=== PATIENT | female | born 1935 | race Caucasian/White ===

== ENCOUNTER 2021-05-24 17:02 | Emergency (ER) | payer OTHER ==
[~2021-05-24] VITALS: Ht 167.6 cm; Wt 68.0 kg
[2021-05-24 18:39] LABS: HEMATOCRIT 32.9 % (37.0-47.0); HEMOGLOBIN 10.7 gm/dL (12.0-15.0); MCH 31.5 pg (26.0-34.0); MCHC 32.4 g/dL (28.0-37.0); RBC 3.39 mil/uL (4.20-5.00); RDW 15.5 % (10.5-14.5); WBC 14.8 thou/uL (4.0-11.0)
[2021-05-24 19:02] LABS: CREATININE 1.6 mg/dL (0.6-1.0); POTASSIUM 5.4 mmol/L (3.5-5.1)
[2021-05-24 19:18] LABS: URINE BILIRUBIN NEGATIVE (Negative); URINE BLOOD TRACE (Negative); URINE CLARITY CLEAR; URINE COLOR YELLOW; URINE GLUCOSE-RANDOM* NEGATIVE (Negative); URINE KETONES NEGATIVE (Negative); URINE PROTEIN (DIPSTICK) TRACE (Negative); URINE UROBILINOGEN 0.2 E.U./dl (0.2-1.0)
[2021-05-24 19:19] LABS: URINE LEUKOCYTES-REFLEX 2+ (Negative); URINE NITRITE-REFLEX POSITIVE (Negative)
[2021-05-24 19:29] LABS: SQUAMOUS 4-10 Moderate /LPF (0-3); URINE RBC 3-10 Few /HPF (NONE SEEN); URINE WBC-REFLEX >25 Many /HPF (0-5)
[2021-05-24 19:30] LABS: CASTS None Seen /LPF (None Seen); CRYSTALS None Seen /LPF (None Seen)
[2021-05-24] MEDS ORDERED: ACETAMINOPHEN500 M1 PO (19:35)
[2021-05-24] MEDS ORDERED: ANTI-DIARRHEAL2 MG PO (19:38)
[2021-05-24] MEDS ORDERED: DEXILANT60 MG PO (19:39)
[2021-05-24] MEDS ORDERED: DICYCLOMINE HCL20 MG PO (19:39)
[2021-05-24] MEDS ORDERED: HALOPERIDOL5 MG/1 ML IM (19:40)
[2021-05-24] MEDS ORDERED: HYOSCYAMINE0.125 MG PO (19:41)
[2021-05-24] MEDS ORDERED: LISINOPRIL20 MG PO (19:42)
[2021-05-24] MEDS ORDERED: LORAZEPAM I2 MG/1 ML PO (19:51)
[2021-05-24] MEDS ORDERED: MORPHINE S100 MG/51 PO (19:52)
[2021-05-24] MEDS ORDERED: PREDNISONE 20 M20 MG PO (19:53)
[2021-05-24] MEDS ORDERED: ONDANSETRON HCL4 M3 PO (19:53)
[2021-05-24] MEDS ORDERED: QUETIAPINE FUMA25 MG PO (19:55)
[2021-05-24] MEDS ORDERED: PREPARATION H C26 GM TOP (19:55)
[2021-05-24] MEDS ORDERED: SERTRALINE HCL100 MG PO (19:55)
[2021-05-24] MEDS ORDERED: DESYREL150 MG PO (19:56)
[2021-05-24] MEDS ORDERED: ULTRAM 50MG TAB50 MG PO (19:56)
[2021-05-25 00:17] LABS: CALCIUM 8.8 mg/dL (8.5-10.1); CREATININE 1.5 mg/dL (0.6-1.0)
[2021-05-25 00:22] LABS: POTASSIUM 5.2 mmol/L (3.5-5.1)
[2021-05-25 00:37] VITALS: BP 106/41
--- NOTE | 2021-05-27 07:55 | EKG ---
[facility] [place] [address] ELECTROCARDIOGRAM REPORT Name: SANA ALY Room #: [facility]#: [id number] Admission: 05/24/21 Attend Phys: Discharge: 05/25/21 Date of : [birth year] Report #: [id number] [facility] ED Test Date: 2021-05-24 Test Time: 18:40:14 Pat Name: SANA ALY Department: Room: Gender: F Welder Operator: : 1935 Requested By: Leslie Caraballo Order Number: [id number] MD: James Pfeiffer Measurements Intervals [place] Rate: 98 P: 67 [place]: 175 QRS: -24 QRSD: 137 T: -28 QT: 361 QTc: 461 Interpretive Statements Sinus rhythm Right bundle branch block Inferior infarct, age indeterminate Baseline wander in multiple lead(s) No previous ECG available for comparison Electronically Signed On 05-27-2021 7:55:20 INCIDENT RESPONSE ANALYST by James Pfeiffer [email or web address] <ELECTRONICALLY SIGNED> By: James Pfeiffer MD, [facility] 05/27/21 0755 1840 1840 James Pfeiffer MD, FACC /EPI
== END 2021-05-25 00:38 ==
LOC: ER 17:02
PROVIDERS: Emergency Medicine; Nurse Practitioner Family
DX: N39.0 Urinary tract infection, site not specified (principal); F91.9 Conduct disorder, unspecified; F41.9 Anxiety disorder, unspecified; M19.90 Unspecified osteoarthritis, unspecified site; F02.80 Dementia in other diseases classified elsewhere, unspecified severity, without behavioral disturbance, psychotic disturbance, mood disturbance, and anxiety; K21.9 Gastro-esophageal reflux disease without esophagitis; E78.5 Hyperlipidemia, unspecified; Z79.899 Other long term (current) drug therapy; Z79.891 Long term (current) use of opiate analgesic; Z88.0 Allergy status to penicillin; Z88.2 Allergy status to sulfonamides

== ENCOUNTER 2021-05-24 18:42 | Inpatient (IN) | payer OTHER ==
[~2021-05-24] VITALS: Ht 165.1 cm; Wt 62.8 kg
--- NOTE | ~2021-05-24 | HC ---
[facility] [place] [address] CONSULTATION Name: SANA ALY Room #: 525-[facility] IN ..#: [id number] Admission: 05/25/21 Attend Phys: Deon Mays DO Discharge: Date of : [birth year] Report #: [id number] THIS REPORT FOR: cc: Miguel Galeano MD, Christopher B. MD Jetmore, Allen B. MD ~ DATE OF SERVICE: 06/02/2021 REASON FOR CONSULTATION: Abrasions and skin tears of right leg and right arm. No other extremities from behavioral disturbance with dementia. I was asked to see the patient by Dr. Carrillo. HISTORY OF PRESENT ILLNESS: Mannie Aly is an unfortunate 86-year-old woman with advanced dementia and behavioral disturbances with some aggressive behaviors. Nurse gave me the history that she was previously on hospice care, but no longer. The patient just over the past couple of days has been noticed to have wounds of her upper and lower extremities, particularly the right leg. This is believed by the nurse to be due to self-inflicted behavior such as banging her leg on chairs. The patient is not able to give a history. She states she just wants to be "left alone." ALLERGIES: PENICILLIN AND SULFA. MEDICATIONS: Trazodone, acetaminophen, loperamide for diarrhea, Dexilant, dicyclomine, Haldol, hyoscyamine, lisinopril, morphine sulfate, prednisone, sertraline, tramadol. REVIEW OF SYSTEMS: Not obtainable. PHYSICAL EXAMINATION: GENERAL: Shows an elderly woman with dementia and altered behavior. She says she just wants to be left alone. She is easily agitated. HEENT: Normal. The patient has ecchymoses of her upper and lower extremities. There is a skin tear of her right upper arm covered with gauze. She do not let me inspected. The patient has a large skin tear of her right lower leg medial posterior calf measuring approximately 15 x 4 cm. This is a superficial skin tear with exposed dermis. The patient has other abrasions and bruises of both legs. IMPRESSION: 1. Dementia with behavioral disturbances and aggressive behaviors. 2. Large skin tear of right leg. 3. Skin tear of right arm. 4. Ecchymoses and contusions of both legs. 5. Diarrhea. [facility] [address] [place] [address] CONSULTATION Name: SANA ALY Room #: 525A-[facility] IN ..#: [id number] Admission: 05/25/21 Attend Phys: Deon Mays DO Discharge: Date of : [birth year] Report #: [id number] PLAN: Wound care will consist of topical application of Bactroban to the open skin tear, areas of the arms and legs daily, cover with Xeroform, ABD pad, Kerlix and protective Burak wrap. Wound care team will follow. By: [id number] Mauricio Torres MD /vince
[2021-05-24] MEDS ORDERED: ACETAMINOPHEN500 M1 PO (19:35)
[2021-05-24] MEDS ORDERED: ANTI-DIARRHEAL2 MG PO (19:38)
[2021-05-24] MEDS ORDERED: DEXILANT60 MG PO (19:39)
[2021-05-24] MEDS ORDERED: DICYCLOMINE HCL20 MG PO (19:39)
[2021-05-24] MEDS ORDERED: HALOPERIDOL5 MG/1 ML IM (19:40)
[2021-05-24] MEDS ORDERED: HYOSCYAMINE0.125 MG PO (19:41)
[2021-05-24] MEDS ORDERED: LISINOPRIL20 MG PO (19:42)
[2021-05-24] MEDS ORDERED: LORAZEPAM I2 MG/1 ML PO (19:51)
[2021-05-24] MEDS ORDERED: MORPHINE S100 MG/51 PO (19:52)
[2021-05-24] MEDS ORDERED: ONDANSETRON HCL4 M3 PO (19:53)
[2021-05-24] MEDS ORDERED: PREDNISONE 20 M20 MG PO (19:53)
[2021-05-24] MEDS ORDERED: QUETIAPINE FUMA25 MG PO (19:55)
[2021-05-24] MEDS ORDERED: SERTRALINE HCL100 MG PO (19:55)
[2021-05-24] MEDS ORDERED: PREPARATION H C26 GM TOP (19:55)
[2021-05-24] MEDS ORDERED: ULTRAM 50MG TAB50 MG PO (19:56)
[2021-05-24] MEDS ORDERED: DESYREL150 MG PO (19:56)
[2021-05-25 01:36] VITALS: BP 139/59
--- NOTE | 2021-05-25 03:46 | NUR ---
Pt admitted to unit at 0055 this shift. Pt brought to unit on [facility] from ED after medical clearance. Pt was listed as ambulatory with walker but ED reports that pt has refused to ambulate in the ED et pt refused to transfer self from [place] to bed. After transferring, pt allowed a cursory inspection of skin where it was noted that she has moderate amount of skin discoloration to bilateral lower extremities. Pt was soiled et small amount of redness noted to perineal area during changing. Area was cleansed et barrier cream applied. VSWNL. Health assessment with no abnormalities noted at present time. Voicemail message was left with DPOA informing of pt's presence on unit et requesting that he return the call to give consent to treat. Phone calls made to physician publications inspector for orders et hospitalist LABORATORY HELPER publications inspector to inform of pt's presence on unit. Med orders entered et med list faxed to pharmacist per his request. Pt calm et cooperative during process. Alert ey oriented to person only. Unable to assess SI/HI due to cognitive deficit but does not demonstrate any symptoms of acute emotional distress at present time. Currently resting in bed with eyes closed. Will continue to monitor per unit protocol.
[2021-05-25 08:10] LABS: CHOLESTEROL 309 mg/dL (<200); HDL CHOLESTEROL 61 mg/dL (>40); LDL CHOLESTEROL 206 mg/dL (<100); TC:HDL 5.1 Ratio (Not establshd); TRIGLYCERIDE 214 mg/dL (<150); VLDL 43 mg/dL (<40)
[2021-05-25 09:09] VITALS: BP 138/79
[2021-05-25 09:21] VITALS: BP 138/79
--- NOTE | 2021-05-25 13:35 | NUR ---
RESUMMED CARE FROM OVERNIGHT SHIFT THIS AM, PATIENT SITTING IN DAY ROOM QUIET. PATIENT ALERT TO SELF ONLY PATIENT PATIENT HAS SOME CONFUSION AND DOES NOT KNOW YEAR MONTH OR DAY. PATIENT ATE BREAKFAST BUT ASKED FOR HER MEDICATION TO BE CRUSHED IN YOGART. PATIENT DENIES SI/HI/AH/VH AT PRESENT PATIENTS AFFECT FLAT. PATIENTS ABDOMEN SOFT BOWEL SOUNDS PRESENT PATIENTS LUNGS CLEAR. PATIENT COMPLAINS OF HIP PAIN WHICH I GAVE TYLENOL 650 MG. PATIENT CALM COOPERATIVE WILL CONTINUE TO MONITOR PATIENT FOR SAFETY AND BEHAVIORS.
--- NOTE | 2021-05-25 17:14 | NUR ---
LA and Dr. Morris attempted to speak with the Pt outside of her room. Pt seemed aggitated and wanted to eat lunch. Pt did state she was scared of falling and has pain in her hip. Pt was rolled into the dining godoy to eat lunch. We were able to get into contact with Jorge A Oliver, son/DPOA. Jorge A was able to give some history on the Pt. Pt has lived [facility] Prior to that she lived on her own. Pt has recently developed dementia in the last year. Jorge A reported that [facility] has not been able to provide the level of care that they had in the past. Due to this Pt's behaviors seem to have increased in an effort to get "attention". Pt grew up in [place], [place] and has 1 younger sister that is still living. 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 Pt was 2x and had 3 children. Pt has no hx of drugs or ETOH abuse. Pt had no prior psychiatric hospitalizations or otpt mental health services. Jorge A had no other questions or comments. SW team will continue to follow.
[2021-05-25 20:03] VITALS: BP 99/52
--- NOTE | 2021-05-26 05:13 | NUR ---
Assumed care of pt at 1900. Pt calm et cooperative this shift. Took medications whole in yogurt this shift without difficulty. Ambulates with assistance of micki-chair. VSWNL. Health assessment with no abnormalities noted this shift. Denies SI/HI at present time. Socialized with peers in dayroom watching TV until HS. Currently resting in bed with eyes closed. Will continue to monitor per unit protocol.
[2021-05-26 05:39] LABS: GLYCOHEMOGLOBIN (HGB A1C) 6.7 % (4.8-5.6)
[2021-05-26 07:36] VITALS: BP 128/75
[2021-05-26 08:37] LABS: URINE BILIRUBIN NEGATIVE (Negative); URINE BLOOD 1+ (Negative); URINE CLARITY CLOUDY; URINE COLOR YELLOW; URINE GLUCOSE-RANDOM* NEGATIVE (Negative); URINE KETONES NEGATIVE (Negative); URINE NITRITE-REFLEX NEGATIVE (Negative); URINE PROTEIN (DIPSTICK) NEGATIVE (Negative); URINE SPECIFIC GRAVITY 1.025 (1.005-1.035); URINE UROBILINOGEN 0.2 E.U./dl (0.2-1.0)
[2021-05-26 08:46] LABS: URINE LEUKOCYTES-REFLEX 2+ (Negative)
[2021-05-26 08:59] LABS: BACTERIA-REFLEX 1-9 Few /HPF (None Seen); CASTS None Seen /LPF (None Seen); CRYSTALS None Seen /LPF (None Seen); SQUAMOUS 0-3 Few /LPF (0-3); URINE RBC 1-2 Rare /HPF (NONE SEEN); URINE WBC-REFLEX >25 Many /HPF (0-5)
[2021-05-26 09:45] VITALS: BP 128/75
--- NOTE | 2021-05-26 16:10 | NUR ---
Assumed pt care from overnight shift this am. Pt presented confused and agitated at this time, and was yelling and screaming on occasion from confusion. Pt was oriented to self only, and would not verbaliaze concerns to staff, stating that staff were "liars- all of you have lied to me, and I don't trust you- I want to go back to bed- don't touch me- you all are lying to my face." Pt was once again reoriented to environment and pt education was done. Pt denied depression and anxiety at this time, and denied any si/hi, and asked staff to leave her alone to sleep. Pt denied any hallucinations at this time as well. Lung sounds clear and diminished. Bowel sounds active. Last BM 05/24/21. Pt stated that she wanted to stay in bed, but per provider orders, pt was on room lockout, so pt was taken to activity area. Pt resistant to this, but pt education was done. No further concerns.
[2021-05-26 20:20] VITALS: BP 128/75
--- NOTE | 2021-05-27 02:06 | NUR ---
PATIENT HAS BEEN IN HER ROOM IN BED ALL NIGHT. SHE SCREAMED OUT A COUPLE OF TIMES IN THE EVENING AND PATIENT WAS HELPED TO THE BATHROOM. HAD TO AWAKEN PATIENT TO TAKE HS MEDS. SHE TOOK THEM WHOLE WITH PUDDING AND WATER. PATIENT DENIES PAIN, SI/HI/AVH. SHE WANTED THIS NURSE TO HURRY GIVING HER MEDS AND ASSESSING HER SO SHE COULD GO BACK TO SLEEP. PATIENT IS SLEEPING AT THIS TIME. SHE IS A/O X 2. BED IN LOW POSITION AND BED ALARM IS ON. ROUTINE ROUNDS TO ASSESS SAFETY AND STATUS OF PATIENT.
[2021-05-27 09:51] VITALS: BP 116/56
[2021-05-27 10:13] VITALS: BP 116/56
--- NOTE | 2021-05-27 10:42 | NUR ---
Admit to [facility] with dementia and behavioral disturbances. Labs: A1C 6.7-borderline high, prediabetes vs steroid (on prednisone). Also HLD with chol 309, triglycerides 214-on lipitor. ? high K of 5.2 and elevated bun/cr lab upon admit. On regular diet, eating 50-100% most meals. Unknown wt hx, BMI is 24. Presents low nutrition risk and will monitor wts and intake trends weekly for team meeting.
--- NOTE | 2021-05-27 13:10 | NUR ---
PATIENT CARE ASSUMED AT 0700 - UP IN DINING [place]ÑA. HESITANT TO STAY - REPEATEDLY WANTING TO RETURN TO ROOM. ADVISED BREAKFAST WILL BE SERVED AT 8AM. PATIENT COMPLIANT WITH MEDICATIONS - ADMINISTERED WITH PUDDING. PATIENT HAS BEEN COMPLETING 50 PERCENT OF MEALS BOTH BREAKFAST AND LUNCH. NO YELLING OUT WITNESSED TODAAY. MUCH EASIER TO REDIRECT AND AGREEABLE - SLEPT 10 HOURS LAST EVENING BUT APPEARS TIRED TODAY. SAT IN DINING [place] FOR GROUP BUT NO PARTICIPATION OBSERVED - SLEPT. DAUGHTER CALLED AND GIVEN UPDATE ON HER PATIENT. DENIES S/I WHEN QUESTIONED. NO PAIN DISCOMFORT VOICED WHEN ASSESSED- LUNGS CLEAR ON AUSCULTATION AND HEART STRONG AND STEADY. CURRENTLY NAPPING IN CANDE CHAIR IN DINING PEÑA. WILL CONTINUE TO [place] NITOR FOR SAFETY AND ADDRESS ANY CONCERNS THAT ARRISE.
[2021-05-27 20:20] VITALS: BP 98/55
--- NOTE | 2021-05-27 21:09 | H ---
[facility] [place] [address] HISTORY AND PHYSICAL Name: SANA AYL [facility] M[facility] [id number] Admission: 05/25/21 Attend Phys: Deon Mays DO Discharge: Date of : [birth year] Report #: [id number] THIS REPORT FOR: cc: Miguel Galeano MD,Deon Benavides MD, DO ~ DATE OF SERVICE: 05/25/2021 INPATIENT GERIATRIC PSYCHIATRIC EVALUATION ATTENDING PSYCHIATRIST: Deon Mays DO PUNCHER: Rg Pack M.D. REASON FOR ADMISSION: Increased agitation, smearing feces on self and rooms, screaming, and inconsolable. SOURCES OF INFORMATION: Brief interview with the patient, telephone conversation with her son, Dr. Bel Oliver, who is a Family Medicine and Emergency Room physician in [place], [place]. Notes from her facility in [facility] CHIEF COMPLAINT: non-specifiec. HISTORY OF PRESENT ILLNESS: This is an 86-year-old female sent out from [facility] Her psychiatrist there is Dr. Syd Frank. She has had a several-week history of declining behavior, inappropriate elimination of feces, screaming, and increased agitation. Miguel Galeano is the fpc doctor as best I can tell. The patient had some behavioral problems at her AL apartment, yelling, and disturbing residents. She smears poop on her clothes and bedding. She could stand as well and purposefully had a bowel movement in inapprproiate place. PAST PSYCHIATRIC HISTORY: Including generalized anxiety disorder, dementia. MEDICAL HISTORY: Status post knee replacement, I believe it was the right. 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 She complains of bilateral hip pain, prediabetes, also temporal arteritis, and is on chronic prednisone therapy. ALLERGIES: SULFA AND PENICILLIN. Her nursing notes state Dexilant 60 mg oral daily for GERD, dicyclomine 20 mg [facility] [address] [place] [address] HISTORY AND PHYSICAL Name: SANA ALY Room #: [facility]- ADM IN ..#: [id number] Admission: 05/25/21 Attend Phys: Deon Mays DO Discharge: Date of : [birth year] Report #: [id number] oral twice per day, lisinopril 20 mg oral daily. She had some p.r.n. She does take 40 mg of prednisone daily for temporal arteritis, Preparation-H, Seroquel regimen was 75 mg in the morning and 50 mg in the afternoon, trazodone 100 mg at bedtime. Her insurance is Medicare AB, there is a [employer] RX, [place] [facility] [place] secondary. EKG was done in the ER showed a ventricular rate 98, NC interval 175 milliseconds, QTc 461 milliseconds, sinus rhythm, right bundle branch block. rabbit ears in V1, V2, V3. LABORATORY DATA: Labs at [facility] are notable for white count elevated to 15.8. Her son, who is a family physician, attributes this to the steroids. Hemoglobin 10.7, hematocrit 32.9, platelet count 396. Chemistry: Sodium 138, potassium 5.2, chloride 104, bicarbonate 26, anion gap 8, BUN 40, creatinine 1.5, estimated GFR 33, glucose 149, lactic acid 1.6, calcium 8.8, triglycerides 214, cholesterol 309, LDL 206, HDL 61. TSH .495 . Urinalysis was positive for trace protein, trace blood, positive nitrites, 2+ leukocyte esterase, rbc's greater than 25, some wbc's, squamous cells, moderate bacteria. For some reason, a urine culture was not triggered, so I called the lab and I ordered urine culture. COVID-19 PCR was not detected. Only imaging done in the ER was a chest x-ray - no acute abnormalities, mild cardiomegaly, atherosclerosis is present. SOCIAL HISTORY: She was born in [place], [place]. High school education plus 1 year of college. twice to the same person, and remarried, and then she had a second . Retired in her 50s. She has been for some time. She has been in placement 2 years according to son. She has an older daughter who is involved and younger son, other than Jorge A Lew. She is the only one with dementia in the family. She has a younger sister, who is alive. CURRENT MEDICATIONS: Trazodone 100 mg at bedtime for sleep, Tylenol scheduled 1000 mg 3 times a day, Seroquel 25 mg q. 4 hours p.r.n. for anxiety or agitation. I reduced the sertraline yesterday 25 mg daily due to disinhibition. Seroquel, I modified at the time of admission 100 mg 3 times a day. We will continue the prednisone 40 mg daily for symptoms for temporal arteritis . Continue lisinopril 20 mg oral daily, pantoprazole 40 mg oral daily as we do not carry Dexilant. Otherwise, house PRNs. PHYSICAL EXAMINATION: GENERAL: In Faustina chair, fairly bald except for hair stikcing up in back part of the scalp. [facility] [address] [place] [address] HISTORY AND PHYSICAL Name: SANA ALY Room #: 525A-[facility] IN ..#: [id number] Admission: 05/25/21 Attend Phys: Deon Mays DO Discharge: Date of : [birth year] Report #: [id number] MENTAL STATUS EXAMINATION: Well-developed, somewhat ill-appearing female, appearing stated age. Attention limited. The patient is hard of hearing. Concentration limited. Speech normal in rate. Thought process: Linear and goal directed. Thought content focused on eating lunch. Denied suicidal or homicidal ideations. No auditory, visual, or tactile hallucinations. Some helplessness. No hopelessness. Mood and affect was irritable, bit hostile, constricted. Memory not formally tested, noted to be impaired. Insight and judgment quite limited. Fund of knowledge diminished. FORMULATION: An 86-year-old female admitted via DPOA, who gave verbal consent to me and perinatal social worker, Melany. The patient is incapacitated due to her dementia and current agitated state. Her DPOA for healthcare and general financial matters is now enacted. PLAN: Change the Seroquel as above. Schedule Tylenol. I decreased her home sertraline. We will need to continue prednisone due to the risk of blindness and will not be discontinued. I discontinued the tramadol, as the son states she does need that. She does not routinely get Bentyl. I will go ahead and put her on daily MiraLax as well. Review of systems for this case were quite limited due to the patient's cooperation, but she did complain of bilateral hip pain. STRENGTHS: She is insured, has a placement, supportive family. WEAKNESSES: Multiple morbidities, dementia, advanced age. <ELECTRONICALLY SIGNED> By: Deon Mays DO 05/27/21 2109 1223 1319 Deon Mays, /nt
[2021-05-27 22:38] VITALS: BP 98/55
--- NOTE | 2021-05-28 01:45 | NUR ---
PATIENT HAS BEEN IN HER BED SINCE BEGINNING OF THE SHIFT. SHE HAS BEEN UP MUCH OF THE DAY IN . SHE STATES IT WAS A BORING DAY. SHE IS MORE CONFUSED TONIGHT AND BELIEVES THIS NURSE TO BE A FAMILY MEMBER OR FRIEND. SHE STATES SHE IS SO GLAD I CAME TO SEE HER AND WAS ASKING HOW THE FAMILY IS DOING. SHE DID GO ON TO SAY THAT THE NURSES THAT HAVE BEEN TAKING CARE OF HER HAVE BEEN SO KIND AND NICE TO HER. PATIENT TOOK HER MEDS WHOLE WITH PUDDING. SHE IS ASSIST X 2-3 ON TRANSFER. PATIENT HAS CALLED OUT ONCE TONIGHT. SHE HAD HAD A LARGE BM. PATIENT WAS TAKEN TO SHOWER ROOM AND GIVEN A BATH. SHE WAS PLACED BACK IN A CLEAN BED. SHE HAD A LARGE LOOSE TO LIQUID STOOL. PATIENT BACK TO SLEEP. SHE DENIES PAIN TONIGHT. NO SIGNS OF SI/HI NOTED. BED IN LOW POSITION AND BED ALARM IS ON. ROUTINE ROUNDS TO ASSESS SAFETY AND STATUS OF PATIENT.
[2021-05-28 10:00] VITALS: BP 118/63
--- NOTE | 2021-05-28 12:35 | NUR ---
Alert and orientated to person, knows she is in hospital. Denies SI/HI. States she is in pain and called out when turning in bed but is unable to states how much pain she is in. Accuses staff of not being gentle but then expresses appreciation for care. Eating breakfast and lunch independently. Compliant with meds. Breath sounds clear. Reg HR auscultated. Color pink with brisk capillary refill and palpable peripheral pulses. Incontinent of brown liquid stool and yellow urine. Able to stand and bear wt and assist with transfer. Laid down for several hours. When assisting to get up she stated she didn't feel well and that she was on her period. Insistent that she was on her period. Only liquid stool seen, no menses. Currently in day room with peers.
--- NOTE | 2021-05-28 17:04 | NUR ---
SW faxed updates to [facility] of
[2021-05-28 19:27] VITALS: BP 104/56
[2021-05-28 19:40] VITALS: BP 104/56
--- NOTE | 2021-05-28 23:52 | NUR ---
[facility] CARE WAS RESUMED AT 1900. SHE IS AWAKE SITTING ON CANDE CHAIR IN THE DININIG AREA. SHE TOOK HER MEDS CRUSHED IN APLLE SAUCE. SHE IS CONFUSED AND FORGETFULL. LUNGS ARE CLEAR BS ACTIVE X4 QUADS. SHE IS INCONTINI OF BOWEL AND BLADDER. SHE DENIES PAINS/AVH/SI/HI. SHE IS RESTING IN BED AT THIS TIME. [id number] CHECK ATIVE. CONTINUE TO MONITOR
--- NOTE | 2021-05-29 09:46 | NUR ---
LARGE LOOSE LIQUID STOOL IN BED AND ON FLOOR WHEN GETTING UP THIS AM-REPORTED TO HAVE HAD MULTIPLE LOOSE STOOLS SINCE YESTERDAY-WHEN ASKED STATES HER STOMACH HURTS "A LITTLE BIT"GOOD APPETITE EATING 100 PERCENT OF BREAKFAST AND TAKING AM MEDS IN YOGURT. IS NOTED TO BECOME ANXIOUS WHEN REQUESTS ARN'T IMMEDIATLY COMPLETED-ASKING IN RAPID SUCCESSION 5-6 TIMES. ORIENTED TTO NAME AND PLACE. WHEN BROUGHT OUT OF ROOM BEGAN TO YELL LOUDLY AND CRY-ATIVAN 0.5MG PO PRN FOR AGITATION/ANXIETY. IMMODIUM 2 MG PO PRN FOR DIARRHEA
[2021-05-29 10:32] VITALS: BP 138/71
--- NOTE | 2021-05-29 18:27 | NUR ---
HAS HAD 2 MORE LIQUID STOOLS SINCE THIS AM-INCONTINENT CARE AND REPOSITIONING Q HOUR-COCYX,SACRAL AREA NOTED TO BE REDDNED AND EXCORIATED AFTER LAST LIQUID STOOL-PERINIUM CLEANSED WITH ALOE WIPES,BARRIER CREAM APPLIED AND POSITIONED ON SIDE AT APPROX 1230-PILL MAKER REPORTS PT WAS ATTEMPTING TO CRAWL OVER SIDE RAILS OF BED TRIGGERING BED ALARM APPROX 15 MINUTES LATER SO PLACED IN GERICHAIR AND BROUGHT OUT TO DAYROOM FOR CONSTANT MONITORING-BEGAN TO YELL LOUDLY INSISTING SHE BE BROUGHT "BACK TO MY APARTMENT OR I WILL SCREAM AT THE TOP OF MY LUNGS" WHEN NURSE EXPLAINED WE HAD JUST BROUGHT HER OUT OF BED IN "APARTMENT BECAUSE SHE WAS TRYING TO GET UP SHE STATES "YOU ARE A NANETTE LIAR" ATIVAN 0.5MG GIVEN PO PRN ALONG WITH SCHEDULED TYLENOL AT 1500-ASSISTED TO BED AT 1630 AND HAS BEEN RESTING ON/OFF SINCE THIS TIME. "
[2021-05-29 19:20] VITALS: BP 124/59
[2021-05-29 19:40] VITALS: BP 124/59
--- NOTE | 2021-05-30 04:06 | NUR ---
PATIENT CARE WAS RESUMED AT 1900. SHE WAS IN BED. LUNGS ARE CLEAR, BS ACTIVE X4 QUAD. SHE DENIES PAINS /SI/AVH/HI. SHE TOOK HER MEDS WHOLE. INCONTINIET OF BOWEL AND BLADDER. SRIDHAR-CARE PROVIDED AND BARRIER CREAME APPLIED TO SRIDHAR AREA. SHE IS REPOSITIONED. BED IS LOCKED, LOW AND ALARMED. CONTINUE CARE AND MONITOR
[2021-05-30 10:02] VITALS: BP 95/49
--- NOTE | 2021-05-30 10:52 | NUR ---
Alert and orientated to person and place. Sleeping when not disturbed. Denies SI/HI. Occassionally calling out. Wants to be left alone. Breath sounds clear. Reg HR auscultated. Color pink with brisk capillary refill. Extremities slightly cool. + 1 edema in lower extremities. Brief dry. Active bowel sounds over soft, rounded abdomen. Refusing to stand. Sitting in recliner on chair alarm and seat cushion. Laid down in bed mid AM by WILD ANIMAL CARETAKER.
[2021-05-30 11:20] VITALS: BP 105/51
[2021-05-30 11:50] VITALS: BP 112/52
--- NOTE | 2021-05-30 17:49 | NUR ---
SW attempted to contact [facility] of 2x with no return calls from admissions or DON. THis was concerning d/c for Thursday. SW did fax over updates to the facility
[2021-05-30 19:28] VITALS: BP 110/58
--- NOTE | 2021-05-31 04:06 | NUR ---
Assumed care of pt at 1900. Pt calm et cooperative this shift. Took medications crushed in pudding without difficulty. Did not witness ambulation this shift as pt was already in bed at beginning of shift. Isolated in room this shift. VSWNL. Health assessment with no abnormalities noted this shift. Denies SI/HI at present time. Currently resting in bed with eyes closed. Will continue to monitor per unit protocol.
--- NOTE | 2021-05-31 08:57 | NUR ---
Phone call to [facility] regarding arranging discharge for 06/03. SW was informed that there is a note that the discharge is occurring and that the nurses will contact me after they have completed their rounds.
[2021-05-31 08:59] VITALS: BP 114/59
[2021-05-31 11:23] VITALS: BP 114/59
--- NOTE | 2021-05-31 14:36 | NUR ---
RESUMMED CARE FROM OVERNIGHT SHIFT THIS AM, PATIENT IN ROOM LYING QUIET. I GOT PATIENT UP DID HYGIENE AND BROUGHT HER TO DAY ROOM FOR BREAKFAST. PATIENT ALERT TO SELF AND SITUATION PATIENT ATE MEDICATION TOOK MEDICATION IN APPLESAUCE. PATIENT DENIES SI/HI/AH/VH AT PRESENT PATIENT MUCH CALMER NO YELLING OUT. PATIENTS ABDOMEN SOFT BOWEL SOUNDS PRESENT PATIENTS LUNGS CLEAR. PATIENT SITTING IN GROUP BUT NO PARTICIPATION. PATIENT STATES HER DEPRESSION AND ANXIETY IS A 2; SHE JUST WANTS TO LEAVE HERE AND TO PLACEMENT. WILL CONTINUE TO MONITOR PATIENT FOR SAFETY AND BEHAVIORS.
[2021-05-31 19:44] VITALS: BP 106/48
--- NOTE | 2021-06-01 05:17 | NUR ---
Assumed care of pt at 1900. Pt calm et cooperative this shift. Took medications whole in yogurt this shift. Ambulates with assistance of gerichair. Socialized with peers in dayroom watching TV until HS. VSWNL. Health assessment with no abnormalities noted this shift. Denies SI/HI at present time. Currently resting in bed with eyes closed. Will continue to monitor per unit protocol.
[2021-06-01 09:43] VITALS: BP 129/65
--- NOTE | 2021-06-01 12:53 | NUR ---
RESUMMED CARE FROM OVERNIGHT SHIFT THIS AM PATIENT IN ROOM SLEEPING QUIET. I GOT PATIENT UP TO EAT BREAKFAST. PATIENT ATE TOOK MEDICATION WITHOUT INCIDENCE PATIENT AFFECT MUCH BRIGHTER SHE THANK STAFF FOR HELPING HER. PATIENT DENIES SI/HI/AH/VH AT PRESENT. PATIENT STATES HER DEPRESSION AND ANXIETY IS A 3 PATIENT ABDOMEN SOFT BOWEL SOUNDS PRESENT. PATIENTS LUNGS CLEAR PATIENT NEEDS ENCOURAGEMENT TO ATTEND GROUPS. PATIENT LIKES TO JUST STAY IN ROOM IN BED I TOLD PATIENT THAT SHE IS GOING TO BE IN DAY ROOM MEALS AND GROUPS. PATIENT HAS NOT YELLED TODAY I DISCUSSSED WITH PATIENT OF HER DISCHARGE ON THURSDAY. WILL CONTINUE TO MONITOR PATIENT FOR SAFETY AND BEHAVIORS.
--- NOTE | 2021-06-02 06:06 | NUR ---
Assumed care of pt at 1900. Pt calm et cooperative most of shift. Took medications whole in pudding without difficulty. Ambulates with assistance of gerichair this shift. VSWNL. Health assessment with no abnormalities noted other than several superficial shearing skin tears to left outer calf, left inner bicep, right inner bicep, and right outer bicep. Areas cleansed et attempted to cover with non-adherent dressing affixed with Kerlex et tape but all dressings came off due to client's movements. Will consult with oncoming shift about wound consult. Pt also had several episodes of loose stool this shift with resulting stool a mucousy, foul-smelling, et watery consistency. Will report to oncoming shift so that any stool softeners or laxatives can be held. Pt denies SI/Hi at present time. Currently resting in bed with eyes closed. Will continue to monitor per unit protocol.
[2021-06-02 09:38] VITALS: BP 116/64
--- NOTE | 2021-06-02 12:47 | NUR ---
LARGE WATERY STOOL IN BED UPON INITAL ASSESSMENT IN ROOM AT APPROX 0745-REQUIRED 3 STAFF TO COMPLETE INCONTINENT CARE/COMPLETE BEDDING AND CLOTHING CHANGE-AGITATED AND RESISITIVE WITH CARES-"GODDAMM IT LEAVE ME BE I'VE HAD ENOUGH SUFFERING" THEN BEGINS TO CRY LOUDLY AND YELL OUT"JUST STOP MY SUFFERING" WILL YELL IN PAIN WHEN LARGE SKIN TEARS TO LE CLEANSED OR TOUCHED WITH TURNING-ATTEMOTED TO POSITION WITH WEDGE SO THAT ARM AND CALF ARE NOT RESTING ON MATTRESS BUT BEGINS TO YELL OUT"YOU ARE MAKING IT WORSE-WHY DO I HAVE TO SUFFER THIS WAY" SCHEDULED TYLENOL GIVEN PER ORDER WITH NO RELIEF-THROWING LEGS OVER SIDERAIL CAUSING KERLEX COVERING RIGHT CALF SKIN TEAR TO COME OFF ND IS NOTED TO HAVE MOD AMOUNT SERROUS DRINAGE-DR RAMOS ON UNIT TO SEE PT AT APPROX 1000-WOUND CARE CONSULT ORDERED. ATIVAN 0.5MG PO PRN ALONG WITH IMMODIUM PO PRN AT 1100. DR CANO CALLED AT 1115 RE PTS ICREASING PAIN AND NORCO 5.325 GIVEN PO PRN AT 1130. DID APPEAR TO REST QUIETLY FOR APPROX 25 MINUTES AFTER NORC0. REFUSING LUNCH OTHER THAN 4-5 BITES REPORTING MOUTH ANGELA. NO LESIONS OR WHITE COATING,ABNORMALITIES NOTED WHENTHIS RN ATTEMPTED TO VISUAL INSIDE OF MOUTH. WAS INIMALLY COOPERATIVE WITH THIS. EMERGENCY DISPATCHER SMITH CONTACTED AND O RECEIVED FOR COMFORT MOUTH RINSE.STAFF AT BEDSIDE ON/OFF THROUGHOUT AM TO PROVIDE CONSTANT MONITORING TO PREVENT FURTHER INJURY TO EXTREMETIES FROM AGITATION
--- NOTE | 2021-06-02 16:17 | NUR ---
Updates faxed to the facility
--- NOTE | 2021-06-02 16:38 | NUR ---
NORCO5/325 1 PO X1 ALONG WITH ATIVAN 0.5MG PO AT APPROX 1500 FOR RESTLESNESS-CRYING.MOANING HITTING LEGS AGAINST BED RAIL-"GIVE ME SOMETHING TO PUT ME TO SLEEP"INCONTINENT OF LARGE AMOUNT OF LIQUID STOOL AND REQUIRED 3 STAFF FOR INCONTINENT CARE,BED AND CLOTHING CHANGE-SCREAMING OUT WITH MOVEMENT OR WHEN SKIN TOUCHED "DON'T TOUCH ANYTHING IT HURTS-JUST LEAVE ME ALONE"ONCE INCONTINENT CARE COMPLETE BED AND CLOTHING CHANGE COMPLETED ALLOWED TO REST THIRTY MINUTES BEFORE WOUND CARE COMPLETED-WAS RESTING QUIETLY IN ROOM-PHOTOGRAPHS OBTAINED ,BACTROBAN APPLIED ,FOLLOWED BY PETROLIUM DRESSING,AND KERLEX-[place] WRAP ORDERED BY MD NOT ABLE TO BE USED ON UNIT SO SMALL AMOUNT OF COBAN APPLIED TO LEFT WOUND AND STOCKING/SLEEVE APPLIED TO UPPER EXTREMETIES-PT CRYING OUT IN PAIN SEVERAL TIMES DURING WOUND CARE STATING SEVERAL TIMES "JUST LEAVE ME ALONE AND LET ME GO TO SLEEP"
[2021-06-02 20:01] VITALS: BP 119/88
--- NOTE | 2021-06-03 00:17 | NUR ---
PATIENT HAS BEEN IN BED THIS EVENING. SHE IS TURNING HERSELF IN BED AT TIMES AND AT OTHER TIMES WITH ASSISTANCE. PATIENT IS IN PAIN JUST TO HAVE ANYTHING TOUCH HER SKIN. SHE HAS VASELINE DRESSINGS WITH CLOTH SLEEVES ON ARMS AND LEFT LOWER LEG. ALL ARE CLEAN AND INTACT, HOWEVER, THE PATIENT DOES TRY AND PULL THE DRESSINGS OFF AT TIMES. SHE IS CONFUSED AND A/OX1. AT FIRST TONIGHT, I WAS UNABLE TO GET HER TO TAKE HER HS MEDS IN PUDDING. ON 4TH ATTEMPT WAS ABLE TO GIVE HER MEDS WITH WATER. PATIENT ALSO GIVEN ATIVAN.5MG AND NORCO FOR PAIN AND ANXIETY. PATIENT WAS CALLING OUT AND CRYING THAT SHE WAS HURTING AND SHE WAS WANTING SOMEONE TO PUT HER TO BED WHICH IS WHERE SHE WAS ALREADY. PATIENT HAS BEEN TALKING OUTLOUD TO HERSELF. SHE HAS BEEN CRYING OUT TO AN JUSTEN AND TELLING HIM THAT SHE LOVES HIM. PATIENT HAD A MODERATED BM TONIGHT THAT WAS SOFT. SHE WAS CLEANED AND CHANGED. PATIENT'S VITALS HAVE BEEN ALL OVER THE PLACE. PATIENT REFUSING CARES AT TIMES D/T INCREASED DISCOMFORT AND SHE WANTS TO BE LEFT TO SLEEP. BED IN LOW POSITION AND BED ALARM IS ON. ROUTINE ROUNDS TO ASSESS SAFETY AND STATUS OF PATIENT.
[2021-06-03 06:28] VITALS: BP 111/56
[2021-06-03] MEDS ORDERED: LIPITOR 20 MG T20 M1 PO (08:38)
[2021-06-03] MEDS ORDERED: LEVOFLOXACIN250 MG PO (08:38)
[2021-06-03] MEDS ORDERED: TRAZODONE HCL50 MG PO (08:40)
[2021-06-03] MEDS ORDERED: SEROQUEL 25 MG25 M1 PO (08:40)
[2021-06-03] MEDS ORDERED: QUETIAPINE FUM200 MG PO (08:41)
[2021-06-03] MEDS ORDERED: MUPIROCIN22 GM TOP (08:43)
[2021-06-03 10:46] VITALS: BP 111/56
--- NOTE | 2021-06-03 10:51 | NUR ---
RESUMMED CARE FROM OVERNIGHT SHIFT THIS AM, PATIENT ALERT TO SELF AND SITUATION ONLY. PATIENT CALM COOPERATIVE GAVE MEDICATION CRUSHED IN YOGART. PATIENT CLEANED UP FOR DISCHARGE TO [facility]; PATIENTS ABDOMEN SOFT BOWEL SOUNDS PRESENT. PATIENTS LUNGS CLEAR PATIENTS RIGHT LEG HAD LARGE SKIN TEAR. PATIENTS DISCHARGE INSTRUCTIONS WITH PATIENTS BELONGINGS. I CALLED THE FACILITY TO GIVE REPORT NO NURSE WAS IN BUILDING SO I LEFT MESSAGE TO CALL ME. I CLEANED AND BANDAGED HER RT LEG PATIENT DENIES SI/HI/AH/VH AT PRESENT. PATIENT ESCORTED DOWN TO ER WITH TRANSPORTER AND WATCHED PATIENT PLACED IN VAN. DATA PROCESSING OPERATOR PULLED OFF TO TAKE PATIENT TO [facility].
--- NOTE | 2021-06-03 11:59 | NUR ---
LA faxed a referral to [facility]
--- NOTE | 2021-06-03 12:25 | NUR ---
LA, Dr. Morris, and Nurse Java J2Ee Lead Katie participated in a phone call with the Pt's DPOA, Jorge A Antonio. The call was concerning discharge and [facility]. Jorge A informed he recieved a phone call from Erica at [facility] on Thursday stating if Pt returned to the facility the family would be have to find and pay for 1:[address] Morris explained that the facility should assist with these efforts. It was also explained that if the facility felt they could not meet the Pt's needs they should assist the family with finding another facility. A referral and order for hospice was also talked about. Jorge A was in agreement with hospice restarting if possible. Katie stated she would contact [facility] concerning the matter. There were no other questions or concerns during this call
--- NOTE | 2021-06-05 08:59 | D ---
[facility] [place] [address] DISCHARGE SUMMARY Name: SANA ALY Room #: 525-A [facility] M.R.#: [id number] Admission: 05/25/21 Attend Phys: Deon Mays DO Discharge: 06/03/21 Date of : [birth year] Report #: [id number] THIS REPORT FOR: cc: Miguel Galeano MD, Christopher B. MD Kerstein,Deon Rios DO ~ DATE OF SERVICE: 06/03/2021 INPATIENT PSYCHIATRIC DISCHARGE SUMMARY ATTENDING PSYCHIATRIST: Deon Mays DO TIER IN: Armando Carrillo MD DISCHARGE DIAGNOSES: Major neurocognitive disorder, likely due to Alzheimer's disease with behavioral disturbance, modest improvement. MEDICAL COMORBIDITIES: Include failure to thrive and ESBL E. coli with 50,000 CFUs, on levofloxacin course, history of temporal arteritis, on prednisone 40 mg daily. Several skin tears in legs and arms, long-term prednisone use is appreciated. The patient should have wound care at senior care. Hyperlipidemia, on a statin. The patient is discharging to assisted living in [facility]. Psychiatric and medical care per receiving facility. Other discharge plan, regular diet, bed rest. She is a max assist, paper wound care orders were given. LABORATORY DATA: This admission, hematology: White count high on 05/24 at 14.8, H and H 10.7 and 32.9, platelet count 396. Chemistries: Sodium 138, potassium 5.2, chloride 104, bicarbonate 26, anion gap 8, BUN 40, creatinine 1.5, estimated GFR 33, glucose 149, hemoglobin A1c is high at 6.7, but she is on steroids. Lactic acid 1.6, calcium 8.8, triglycerides 214, cholesterol 309, LDL 206, HDL 61. They are all from 05/25. On the lipids, TSH is 0.495 on 05/24. Urinalysis had several positives including bacteria, leukocyte esterase, 1+ blood. SARS-CoV-2 by PCR was not detected on the 05/24, 05/27, 05/29 and 06/01 and micro showed 30,000 CFU E. coli ESBL that was treated with levofloxacin for a 7-day course. Imaging on this admission was chest x-ray on 05/24, no acute abnormalities. REASON FOR ADMISSION: Going back to the or so may, an 86-year-old female sent out from [facility] in [place]. The patient had several week history of declining behavior, inappropriate elimination of feces, screaming, increased agitation. HOSPITAL COURSE: The patient was admitted to the Geriatric Psychiatry Unit. The patient was titrated on Seroquel up to 200 mg 3 times a day. She unfortunately requires prednisone for temporal arteritis. This is an aiding and abetting factor as she does have an advanced dementia. In fact, the patient [address] [address] DISCHARGE SUMMARY Name: SANA ALY Room #: 525[facility].#: [id number] Admission: 05/25/21 Attend Phys: Deon Mays, Discharge: 06/03/21 Date of : [birth year] Report #: [id number] apparently outlived the prescribed period of hospice services at senior care and they were discontinued a month or so prior to admission. The patient is quite reactive when she feels left alone or abandoned. This decreased in frequency, but remained a tension. At the day of discharge, the patient is not an imminent threat to self or others and can be step-down. PHYSICAL EXAMINATION: VITAL SIGNS: On the day of discharge, temperature 35.9, pulse 76, respirations 19, BP 111/56, O2 sat 98%. MUSCULOSKELETAL: Ill, skin tears appearing in bed, lying on the right side position. MENTAL STATUS EXAMINATION: Well-developed, ill, age-appearing female. Attention limited. Concentration limited. Speech interrupted. Thought process: Linear, limited. Thought content: Focused on lack of attention, somatic concerns. Denied suicidal or homicidal ideation, auditory or visual type hallucinations, multiple reports of hopelessness and helplessness related to her situation. Memory not formally tested, known to be impaired. Insight and judgment were very limited to impaired. Fund of knowledge below average. Prognosis for this patient is poor given her age, her physical debility, having a neurodegenerative disorder. We had multiple telephone conferences with her son, Dr. Staples Jorge A Lew about the patient's diagnosis, prognosis. The patient was a no code. <ELECTRONICALLY SIGNED> By: Deon Mays DO 06/05/21 [id number] Deon Mays DO /nt
== END 2021-06-03 09:50 | disposition hospice, inpatient (51) | DRG 57 ==
LOC: SBH
PROVIDERS: Hospitalist; ADMIT Psychiatry & Neurology Psychiatry; ATTEND Psychiatry & Neurology Psychiatry
DX: G30.9 Alzheimer's disease, unspecified (principal); F02.81 Dementia in other diseases classified elsewhere, unspecified severity, with behavioral disturbance; N39.0 Urinary tract infection, site not specified; G93.49 Other encephalopathy; Z20.822 Contact with and (suspected) exposure to COVID-19; R45.1 Restlessness and agitation; K21.9 Gastro-esophageal reflux disease without esophagitis; R19.7 Diarrhea, unspecified; S80.12XA Contusion of left lower leg, initial encounter; S80.11XA Contusion of right lower leg, initial encounter; S41.111A Laceration without foreign body of right upper arm, initial encounter; B96.20 Unspecified Escherichia coli [E. coli] as the cause of diseases classified elsewhere; X58.XXXA Exposure to other specified factors, initial encounter; R45.5 Hostility; R45.4 Irritability and anger; F22 Delusional disorders; M31.6 Other giant cell arteritis; E78.5 Hyperlipidemia, unspecified; I10 Essential (primary) hypertension; G47.00 Insomnia, unspecified; R73.03 Prediabetes; R62.7 Adult failure to thrive; F41.1 Generalized anxiety disorder; Z96.651 Presence of right artificial knee joint; H35.30 Unspecified macular degeneration; Z86.16 Personal history of COVID-19; Z79.899 Other long term (current) drug therapy; Z88.0 Allergy status to penicillin; Z88.2 Allergy status to sulfonamides; Y93.89 Activity, other specified; Y92.89 Other specified places as the place of occurrence of the external cause; Y99.8 Other external cause status; Z68.23 Body mass index [BMI] 23.0-23.9, adult
CPT/HCPCS: 10880